=== PATIENT | female | born 1990 | race Caucasian/White ===

== ENCOUNTER 2021-09-24 06:26 | Inpatient (IN) | payer MEDICAID, OTHER ==
[~2021-09-24] VITALS: Ht 157.5 cm; Wt 91.2 kg
[~2021-09-24 06:26] MED LIST: HYDR-3512 PO; LEVO500T2 PO; METR500T PO
[2021-09-24] MEDS ORDERED: ONDANSETRON HCL 4MG/2ML INJ IV STA (07:01)
[2021-09-24] MEDS ORDERED: MORPHINE SULFATE 4 MG/ML CPJ (NOT FOR IM USE) IV STA (07:01)
[2021-09-24] MEDS ORDERED: KETOROLAC 30MG/ML VIAL IV STA (07:01)
[2021-09-24] MEDS ORDERED: SODIUM CHLORIDE 0.9% 1,000 ML IV ONE (07:15)
[2021-09-24 07:39] LABS: BASOPHILS % 0.5 % (0.0-2.0); EOSINOPHILS % 1.2 % (0.0-5.0); HEMOGLOBIN. 13.5 g/dL (12.0-16.0); LYMPHOCYTES % 26.1 % (20.0-50.0); MEAN CORPUSCULAR HEMOGLOBIN 30.1 pg (28.0-32.0); MEAN CORPUSCULAR VOLUME 89.1 fL (81.0-99.0); MEAN PLATELET VOLUME 9.5 fl (7.4-10.4); MONOCYTES % 5.3 % (2.0-8.0); NEUTROPHILS % 66.9 % (40.0-76.0); PLATELET 239 x1000/uL (130-400); RED BLOOD CELL COUNT 4.49 mill/uL (4.2-5.4); RED CELL DISTRIBUTION WIDTH 13.1 % (11.6-14.6)
[2021-09-24 07:44] LABS: CHLORIDE 110 mEq/L (98-107)
[2021-09-24 07:58] LABS: CLARITY URINE CLOUDY (CLEAR); COLOR URINE ORANGE (YELLOW); KETONES URINE NEGATIVE (NEGATIVE); LEUKOCYTE ESTERASE URINE 1+ (NEGATIVE); NITRITE URINE NEGATIVE (NEGATIVE); OCCULT BLOOD URINE 3+ (NEGATIVE); PROTEIN URINE 1+ (NEGATIVE); SPECIFIC GRAVITY URINE 1.023 (1.005-1.030); UROBILINOGEN URINE 0.2 E.U./dL (0.2-1.0)
[2021-09-24] MEDS ORDERED: HYDR-4001 MT (08:36)
[2021-09-24] MEDS ORDERED: LEVO500T89 MT (08:36)
[2021-09-24] MEDS ORDERED: HYDROCODONE/ACETAMINOPHEN 5/325MG TABLET PO ONE (08:45)
[2021-09-24] MEDS ORDERED: CEFTRIAXONE 1 G PREMIX 50 ML IV ONE (11:15)
[2021-09-24] MEDS ORDERED: IPRATROPIUM/ALBUTEROL 0.5-3(2.5)MG/3ML NEB HHN PRN (11:15)
[2021-09-24] MEDS ORDERED: DIPHENHYDRAMINE 50MG/ML VIAL IV PRN (11:15)
[2021-09-24] MEDS ORDERED: KETOROLAC 15MG/ML VIAL IV PRN (11:15)
[2021-09-24] MEDS ORDERED: CLONIDINE 0.1MG TABLET PO PRN (11:15)
[2021-09-24] MEDS: SODIUM CHLORIDE 0.9% 1,000 ML IV SCH ×2 (11:37→23:45)
[2021-09-24] MEDS: ONDANSETRON HCL 4MG/2ML INJ IV PRN ×2 (11:37→14:26)
[2021-09-24] MEDS ORDERED: MORPHINE SULFATE 2 MG/ML CPJ (NOT FOR IM USE) IV PRN (14:30)
[2021-09-24] MEDS ORDERED: NALOXONE HCL 0.4MG/ML VIAL IV PRN (14:30)
[2021-09-24 18:30] VITALS: BP 104/55
[2021-09-24 20:07] LABS: HEMATOCRIT 34.2 % (36.0-48.0); HEMOGLOBIN 11.6 g/dL (12.0-16.0)
[2021-09-24] MEDS: ONDANSETRON HCL 4MG/2ML INJ IV SCH (21:05)
[2021-09-24] MEDS: KETOROLAC 30MG/ML VIAL IV PRN (23:20)
[2021-09-25] MEDS: ONDANSETRON HCL 4MG/2ML INJ IV SCH ×4 (02:00→20:00)
[2021-09-25 06:42] LABS: CHLORIDE 113 mEq/L (98-107)
[2021-09-25 07:14] LABS: BASOPHILS % 0.2 % (0.0-2.0); EOSINOPHILS % 0.2 % (0.0-5.0); HEMATOCRIT. 35.2 % (36.0-48.0); HEMOGLOBIN. 11.7 g/dL (12.0-16.0); LYMPHOCYTES % 22.7 % (20.0-50.0); MEAN CORPUSCULAR HEMOGLOBIN 29.2 pg (28.0-32.0); MEAN CORPUSCULAR VOLUME 88.2 fL (81.0-99.0); MEAN PLATELET VOLUME 9.4 fl (7.4-10.4); MONOCYTES % 8.3 % (2.0-8.0); NEUTROPHILS % 68.6 % (40.0-76.0); PLATELET 236 x1000/uL (130-400); RED CELL DISTRIBUTION WIDTH 13.2 % (11.6-14.6)
[2021-09-25] MEDS: PANTOPRAZOLE SODIUM 40 MG/VIAL IV SCH ×2 (08:29→16:45)
[2021-09-25] MEDS: CEFTRIAXONE 1,000 MG in DEXTROSE 5% WATER 50 ML IV SCH (11:13)
[2021-09-25] MEDS: SODIUM CHLORIDE 0.9% 1,000 ML IV SCH (11:25)
[2021-09-25 12:00] VITALS: BP 96/36
[2021-09-25] MEDS: DEXT 5%/0.9% NACL 1,000 ML IV SCH ×2 (12:26→20:05)
[2021-09-25] MEDS: ACETAMINOPHEN 325MG TABLET PO PRN (14:43)
[2021-09-25 16:00] VITALS: BP 91/50
[2021-09-25 20:00] VITALS: BP 124/65
[2021-09-25] MEDS: KETOROLAC 30MG/ML VIAL IV PRN (22:16)
[2021-09-26] VITALS: BP 107/56
[2021-09-26] MEDS: ONDANSETRON HCL 4MG/2ML INJ IV SCH ×4 (02:00→21:06)
[2021-09-26 04:00] VITALS: BP 90/44
[2021-09-26] MEDS: DEXT 5%/0.9% NACL 1,000 ML IV SCH ×3 (04:25→21:06)
[2021-09-26] MEDS: KETOROLAC 30MG/ML VIAL IV PRN ×2 (05:29→17:21)
[2021-09-26 07:52] LABS: BASOPHILS % 0.2 % (0.0-2.0); EOSINOPHILS % 0.6 % (0.0-5.0); HEMATOCRIT. 32.8 % (36.0-48.0); HEMOGLOBIN. 11.2 g/dL (12.0-16.0); LYMPHOCYTES % 16.3 % (20.0-50.0); MEAN CORPUSCULAR HEMOGLOBIN 29.7 pg (28.0-32.0); MEAN CORPUSCULAR VOLUME 87.3 fL (81.0-99.0); NEUTROPHILS % 74.9 % (40.0-76.0); PLATELET 217 x1000/uL (130-400); RED BLOOD CELL COUNT 3.75 mill/uL (4.2-5.4); RED CELL DISTRIBUTION WIDTH 13.2 % (11.6-14.6)
[2021-09-26 08:00] VITALS: BP 103/50
[2021-09-26 08:03] LABS: INR 1.1; PROTHROMBIN TIME 11.6 sec (9.6-11.0)
[2021-09-26] MEDS: PANTOPRAZOLE SODIUM 40 MG/VIAL IV SCH ×2 (09:00→17:00)
[2021-09-26] MEDS ORDERED: KCL 20MEQ/100ML PREMIX 100 ML IV NR (11:00)
[2021-09-26 11:49] LABS: HCG SCREEN NEGATIVE
[2021-09-26 12:00] VITALS: BP 124/59
[2021-09-26] MEDS ORDERED: PROPOFOL 200MG/20ML VIAL IV ONE (14:06)
[2021-09-26] MEDS ORDERED: LIDOCAINE HCL 1% 20ML VIAL (Pyxis) INJ ONE (14:07)
[2021-09-26] MEDS: CEFTRIAXONE 1,000 MG in DEXTROSE 5% WATER 50 ML IV SCH (15:50)
[2021-09-26 16:00] VITALS: BP 110/50
[2021-09-26 19:28] LABS: HEMATOCRIT 33.1 % (36.0-48.0); HEMOGLOBIN 11.2 g/dL (12.0-16.0)
[2021-09-26 20:00] VITALS: BP 116/74
[2021-09-27] VITALS: BP 104/59
[2021-09-27] MEDS: ONDANSETRON HCL 4MG/2ML INJ IV SCH ×5 (02:00→21:08)
[2021-09-27 04:00] VITALS: BP 110/70
[2021-09-27] MEDS: DEXT 5%/0.9% NACL 1,000 ML IV SCH ×3 (05:14→21:08)
[2021-09-27 06:41] LABS: BASOPHILS % 0.3 % (0.0-2.0); EOSINOPHILS % 0.8 % (0.0-5.0); HEMATOCRIT. 32.2 % (36.0-48.0); HEMOGLOBIN. 10.9 g/dL (12.0-16.0); LYMPHOCYTES % 25.2 % (20.0-50.0); MEAN CORPUSCULAR HEMOGLOBIN 29.3 pg (28.0-32.0); MEAN CORPUSCULAR VOLUME 86.5 fL (81.0-99.0); MEAN PLATELET VOLUME 8.4 fl (7.4-10.4); MONOCYTES % 8.7 % (2.0-8.0); PLATELET 238 x1000/uL (130-400); RED BLOOD CELL COUNT 3.72 mill/uL (4.2-5.4)
[2021-09-27 08:00] VITALS: BP 104/42
[2021-09-27] MEDS: PANTOPRAZOLE SODIUM 40 MG/VIAL IV SCH ×2 (08:57→16:04)
[2021-09-27] MEDS: CEFTRIAXONE 1,000 MG in DEXTROSE 5% WATER 50 ML IV SCH (11:31)
[2021-09-27 12:00] VITALS: BP 111/58
[2021-09-27 16:00] VITALS: BP 116/68
[2021-09-27] MEDS: ACETAMINOPHEN 325MG TABLET PO PRN (16:05)
[2021-09-27] MEDS: KETOROLAC 30MG/ML VIAL IV PRN (18:14)
[2021-09-27 20:00] VITALS: BP 102/66
[2021-09-28] VITALS: BP 123/78
[2021-09-28 00:05] LABS: HEMATOCRIT 35.2 % (36.0-48.0); HEMOGLOBIN 11.8 g/dL (12.0-16.0)
[2021-09-28] MEDS: ONDANSETRON HCL 4MG/2ML INJ IV SCH ×3 (02:00→14:00)
[2021-09-28] MEDS ORDERED: KETOROLAC 30MG/ML VIAL IV PRN ×2 (03:00→07:15)
[2021-09-28 04:00] VITALS: BP 97/53
[2021-09-28] MEDS: DEXT 5%/0.9% NACL 1,000 ML IV SCH ×2 (05:26→14:45)
[2021-09-28] MEDS ORDERED: HYDROCODONE/ACETAMINOPHEN 5/325MG TABLET PO PRN (07:15)
[2021-09-28 07:21] LABS: BASOPHILS % 0.2 % (0.0-2.0); EOSINOPHILS % 1.1 % (0.0-5.0); HEMATOCRIT. 33.3 % (36.0-48.0); HEMOGLOBIN. 11.3 g/dL (12.0-16.0); LYMPHOCYTES % 21.3 % (20.0-50.0); MEAN CORPUSCULAR HEMOGLOBIN 29.4 pg (28.0-32.0); MEAN CORPUSCULAR VOLUME 86.5 fL (81.0-99.0); MEAN PLATELET VOLUME 9.2 fl (7.4-10.4); MONOCYTES % 8.4 % (2.0-8.0); PLATELET 246 x1000/uL (130-400); RED BLOOD CELL COUNT 3.85 mill/uL (4.2-5.4); RED CELL DISTRIBUTION WIDTH 12.5 % (11.6-14.6)
[2021-09-28 08:00] VITALS: BP 95/47
[2021-09-28] MEDS ORDERED: TRAMADOL 50MG TABLET PO PRN (10:00)
[2021-09-28] MEDS ORDERED: ACET650T37 MT (11:31)
[2021-09-28] MEDS ORDERED: TRAM50TA3 MT (11:31)
[2021-09-28] MEDS ORDERED: LEVO750T46 MT ×3 (11:33→12:23)
[2021-09-28 12:00] VITALS: BP 116/59
[2021-09-28] MEDS: CEFTRIAXONE 1,000 MG in DEXTROSE 5% WATER 50 ML IV SCH (12:07)
[2021-09-28] MEDS: PANTOPRAZOLE SODIUM 40 MG/VIAL IV SCH (12:07)
[2021-09-28 13:02] VITALS: BP 116/59
== END 2021-09-28 15:33 | disposition home or self-care (01) | DRG 465 ==
LOC: ER 06:26 → 6EST 10:46 → EDBEDREQ 10:52 → ENRESERV 15:06
PROVIDERS: ADMIT Internal Medicine; ATTEND Internal Medicine
PROC: 0DB78ZX Excision of Stomach, Pylorus, Via Natural or Artificial Opening Endoscopic, Diagnostic (ICD-10-PCS; principal; 2021-09-28)
DX: N20.2 Calculus of kidney with calculus of ureter (principal); K27.4 Chronic or unspecified peptic ulcer, site unspecified, with hemorrhage; K29.71 Gastritis, unspecified, with bleeding; G43.909 Migraine, unspecified, not intractable, without status migrainosus; Z20.822 Contact with and (suspected) exposure to COVID-19; N39.0 Urinary tract infection, site not specified; Z87.442 Personal history of urinary calculi; Z98.891 History of uterine scar from previous surgery
CPT/HCPCS: 36415; 74176; 76856; 80048; 80053; 81003; 84550; 84703; 85014; 85018; 85025; 87426; 88305; 88312; 88313; 93970; 99285; C9113; J0696; J1885; J2270; J2405; J2704; J3480; J3490; J7030; J7042; J7060; J7070